=== PATIENT | female | born 1975 | race Caucasian/White ===

== ENCOUNTER → 2021-05-18 11:15 | Outpatient (CLI) | payer OTHER, SELFPAY ==
--- NOTE | ~2021-05-18 | US_ITS ---
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 COMPARISON: None. FINDINGS: The uterus measures 11.9 x 6.3 x 7.4 cm. The endometrial complex measures 5 mm in thickness. Linear shadowing IUD within the endometrial canal. 3.7 cm hypoechoic fibroid in the posterior uterine body. The right ovary measures 3.1 x 1.5 x 1.5 cm. The left ovary measures 3.5 x 1.5 x 2.3 cm. There is nor mal vascular flow in the ovaries. No abnormal adnexal masses identified. Minimal likely physiologic f ree fluid in the pelvis. IMPRESSION: 1. 3.7 cm uterine fibroid. 2. IUD in expected position within the endometrial canal. Reviewed, dictated and finalized at location A. HIATRIC AIDE
== END ==
PROVIDERS: PCP Internal Medicine; Visit Provider Internal Medicine
DX: Z86.018 Personal history of other benign neoplasm (principal); D25.9 Leiomyoma of uterus, unspecified; Z97.5 Presence of (intrauterine) contraceptive device
CPT/HCPCS: 76830; 76856

== ENCOUNTER → 2022-08-02 12:22 | Outpatient (CLI) | payer OTHER, SELFPAY ==
--- NOTE | ~2022-08-02 | MM_ITS ---
EXAMINATION: MM screening luis BI w dillan HISTORY: Screening TECHNIQUE: Craniocaudal and mediolateral oblique 3-D tomosynthesis images were obtained and synthetic 2-D images were generated. CAD analysis was submitted and interpreted. COMPARISON: No prior mammogram is available for comparison at this institution. BREAST PARENCHYMAL COMPOSITION: The breasts are heterogeneously dense, which may obscure small masses FINDINGS: There is no mammographic evidence for malignancy in the right breast. There is a focal asym metry in the lower inner quadrant of the left breast posteriorly. IMPRESSION: 1. Focal left breast asymmetry, lower inner quadrant. 2. Additional mammographic views and possible breast ultrasound are recommended. BI-RADS Category 0: Incomplete: Needs additional imaging evaluation. Reviewed, dictated and finalized at location A. R IMPRESSION: 1. Focal left breast asymmetry, lower inner quadrant. 2. Additional mammographic views and possible breast ultrasound are recommended . BI-RADS Category 0: Incomplete: Needs additional imaging evaluation.
== END ==
PROVIDERS: PCP Internal Medicine; Visit Provider Obstetrics & Gynecology
DX: Z12.31 Encounter for screening mammogram for malignant neoplasm of breast (principal); N64.89 Other specified disorders of breast
CPT/HCPCS: 77063; 77067

== ENCOUNTER → 2022-08-04 10:58 | Outpatient (CLI) | payer OTHER, SELFPAY ==
--- NOTE | ~2022-08-04 | US_ITS ---
EXAMINATION: US pelvic complete w TV DATE: 08/04/2022 13:03 INDICATION: Uterine fibroid. TECHNIQUE: Multiple transabdominal and transvaginal sonographic images of the pelvis were obtained. COMPARISON: Ultrasound 05/18/2021 FINDINGS: TRANSABDOMINAL ULTRASOUND: The uterus measures 15.6 x 5.7 x 7.2 cm. There is no free fluid in the pelvis. TRANSVAGINAL ULTRASOUND: The endometrial complex measures 3 mm in thickness. There is an intrauterine device in expected posit ion. There is a 4.1 cm subserosal fibroid posteriorly. The right ovary measures 2.4 x 1.4 x 1.9 cm. T he left ovary measures 2.9 x 1.6 x 2.4 cm. IMPRESSION: 1. 4.1 cm uterine fibroid. 2. Intrauterine device in expected position. Reviewed, dictated and finalized at location A. [employer]AT[employer] WORKER
== END ==
PROVIDERS: Visit Provider Internal Medicine
DX: D25.9 Leiomyoma of uterus, unspecified (principal); Z97.5 Presence of (intrauterine) contraceptive device
CPT/HCPCS: 76830; 76856

== ENCOUNTER → 2022-08-18 08:34 | Outpatient (CLI) | payer OTHER, SELFPAY ==
--- NOTE | ~2022-08-18 | MMUS_ITS ---
EXAMINATION: MM diagnostic luis LT w dillan, US breast LT limited HISTORY: Left breast asymmetry on screening mammogram TECHNIQUE: Additional 3-D tomosynthesis images of the left breast were performed and synthetic 2-D im ages were generated. CAD analysis was submitted and interpreted. High resolution limited left breast ultrasound was performed. COMPARISON: 08/02/2022, 11/13/2020, 12/10/2019 FINDINGS: MAMMOGRAPHIC FINDINGS: An asymmetry in the middle third of the lower inner left breast has an appearance similar to prior ma mmograms with spot compression. No suspicious mass, calcification, or architectural distortion are id entified. ULTRASOUND: There is a 3 mm oval, circumscribed, parallel, hypoechoic mass with no posterior features or internal vascularity in the left breast at the 7:00 location 4 cm from the nipple. IMPRESSION: 1. Stable mammographically detected asymmetry of the left breast and probably benign sonographically detected left breast mass. 2. Recommend 6 month follow-up targeted left breast ultrasound. BI-RADS category 3, probably benign findings. Reviewed, dictated and finalized at location B. CH LANGUAGE THERAPIST IMPRESSION: 1. Stable mammographically detected asymmetry of the left breast and probably b enign sonographically detected left breast mass. 2. Recommend 6 month follow-up targeted left breast ultrasound. BI-RADS category 3, probably benign findings.
== END ==
PROVIDERS: PCP Internal Medicine; Visit Provider Obstetrics & Gynecology
DX: N64.89 Other specified disorders of breast (principal)
CPT/HCPCS: 76642; 77061; 77065; G0279

== ENCOUNTER → 2023-02-21 10:30 | Outpatient (CLI) | payer OTHER, SELFPAY ==
--- NOTE | ~2023-02-21 | US_ITS ---
US breast LT limited DATE: 02/21/2023 11:01 INDICATION: Six-month follow-up of probable benign left breast mass at 7:00 4 cm from nipple TECHNIQUE: Real-time imaging and color flow imaging targeted at 7:00 4 cm from nipple COMPARISON: August 18, 2022 diagnostic left mammogram and limited left breast ultrasound examinatio n FINDINGS: No suspicious mass or shadowing or abnormal vascularity is detected at 7:00 4 cm from nippl e: IMPRESSION: No mammographic evidence of malignancy BI-RADS Category 1: Negative Reviewed, dictated and finalized at Location A. Reviewed, dictated and finalized at location A.
== END ==
PROVIDERS: PCP Internal Medicine; Visit Provider Obstetrics & Gynecology
DX: R92.8 Other abnormal and inconclusive findings on diagnostic imaging of breast (principal)
CPT/HCPCS: 76642

== ENCOUNTER 2023-11-24 13:52 | Outpatient (CLI) | payer OTHER, SELFPAY ==
--- NOTE | ~2023-11-24 | MM_ITS ---
EXAMINATION: MM screening luis BI w dillan HISTORY: Screening TECHNIQUE: Craniocaudal and mediolateral oblique 3-D tomosynthesis images were obtained and synthetic 2-D images were generated. CAD analysis was submitted and interpreted. COMPARISON: Comparison to multiple prior studies sequentially, with oldest reviewed study dated 02/2020. BREAST PARENCHYMAL COMPOSITION: Dense: The breasts are heterogeneously dense, which may obscure small masses FINDINGS: There is no evidence of suspicious mass, calcification, or architectural distortion to sugg est malignancy in either breast. There has been no suspicious interval change. IMPRESSION: 1. No mammographic evidence of malignancy. 2. Recommend routine screening mammography in one year. BI-RADS Category 1: Negative Reviewed, dictated and finalized at location A.
== END 2023-11-24 13:53 ==
LOC: MICIMG 13:52
PROVIDERS: PCP Internal Medicine; Visit Provider Obstetrics & Gynecology
DX: Z12.31 Encounter for screening mammogram for malignant neoplasm of breast (principal)
CPT/HCPCS: 77063; 77067

== ENCOUNTER 2025-03-20 11:57 | Outpatient (CLI) | payer OTHER, SELFPAY ==
--- NOTE | ~2025-03-20 | MM_ITS ---
EXAMINATION: screening [facility] BI w dillan INDICATION: Asymptomatic, referred for screening mammogram COMPARISON: 11/24/2023 through 12/10/2019 TECHNIQUE: Digital Breast Tomosynthesis CC, MLO views of Both breasts were obtained with computer-aided detection to assist in interpretation of the study. FINDINGS: The breasts are heterogeneously dense, which may obscure small masses. There is a focal asymmetry in the inferior medial left breast at middle third. Elsewhere, there are no mammographic features of malignancy. IMPRESSION: 1. Left breast Focal asymmetry. 2. No evidence of malignancy in the Right breast. RECOMMENDATION: Left breast Diagnostic mammogram with true lateral, appropriate spot compression views and an ultrasound if needed. BI-RADS Category 0: Incomplete: Needs additional imaging evaluation. Reviewed, dictated and finalized at location B. IMPRESSION: 1. Left breast Focal asymmetry. 2. No evidence of malignancy in the Right breast. RECOMMENDATION: Left breast Diagnostic mammogram with true lateral, appropriate spot compressio n views and an ultrasound if needed. BI-RADS Category 0: Incomplete: Needs additional imaging evaluation.
== END 2025-03-20 11:58 | disposition home or self-care (01) ==
LOC: MICIMG 11:59
PROVIDERS: PCP Internal Medicine; Visit Provider Obstetrics & Gynecology
DX: Z12.31 Encounter for screening mammogram for malignant neoplasm of breast (principal); R92.8 Other abnormal and inconclusive findings on diagnostic imaging of breast
CPT/HCPCS: 77063; 77067

== ENCOUNTER 2025-05-03 08:55 | Outpatient (CLI) | payer OTHER, SELFPAY ==
--- NOTE | ~2025-05-03 | MMUS_ITS ---
EXAMINATION: MM diagnostic luis LT w dillan, US breast LT limited HISTORY: New left breast mass TECHNIQUE: Additional 3-D tomosynthesis images of the left breast were performed and synthetic 2-D images were generated. CAD analysis was submitted and interpreted. High resolution Limited left breast ultrasound was performed. COMPARISON: Comparison to multiple prior studies sequentially, with oldest reviewed study dated 12/10/2019. BREAST PARENCHYMAL COMPOSITION: Not dense: There are scattered areas of fibroglandular density. FINDINGS: MAMMOGRAPHIC FINDINGS: No discrete mass, calcifications or architectural distortion are identified in the left breast to suggest malignancy. Left breast asymmetry in the lower inner quadrant compresses. ULTRASOUND: Limited left breast ultrasound: At 9:00, 2 cm from the nipple there is a 5 mm cyst. At 7:00, 4 cm from the nipple there is a oval hypoechoic mass with slightly irregular margins measuring 5 x 4 x 2 mm, possibly minimally increased in size compared with prior study allowing for differences of technique. IMPRESSION: 1. Possible mild increased of slightly irregular shaped 5 mm left breast mass at 7:00, 5 cm from the nipple compared with 02/21/2023 ultrasound. 2. Recommend 6 month follow-up Limited left breast ultrasound BI-RADS category 3, probably benign findings. Reviewed, dictated and finalized at location B. IMPRESSION: 1. Possible mild increased of slightly irregular shaped 5 mm left breast mass a t 7:00, 5 cm from the nipple compared with 02/21/2023 ultrasound. 2. Recommend 6 month follow-up Limited left breast ultrasound BI-RADS category 3, probably benign findings.
== END 2025-05-03 08:56 | disposition home or self-care (01) ==
LOC: MICIMG 08:56
PROVIDERS: PCP Internal Medicine; Visit Provider Obstetrics & Gynecology
DX: N64.89 Other specified disorders of breast (principal)
CPT/HCPCS: 76642; 77061; 77065; G0279